=== PATIENT | male | born 1980 | race American Indian/Alaskan Native ===

== ENCOUNTER 2019-08-02 10:38 | Emergency (ER) | payer BC ==
--- NOTE | 2019-08-02 11:26 | Emergency Department Report ---
Blank Doc - Documentation Documentation: 39-year-old male that presents with mid-penile shaft swelling after hitting the toilet while being erected. This initial assessment/diagnostic orders/clinical plan/treatment(s) is/are subject to change based on patient's health status, clinical progression and re- assessment by fellow clinical providers in the ED. Further treatment and workup at subsequent clinical providers discretion. Patient/guardians urged not to elope from the ED as their condition may be serious if not clinically assessed and managed. Initial orders include: 1- Patient sent to [facility] for further evaluation and treatment
--- NOTE | 2019-08-02 13:33 | Emergency Department Report ---
ED Male HPI - General Chief complaint: Urogenital-Male Stated complaint: PENILE EDEMA Time Seen by Provider: 08/02/19 11:25 Source: patient Mode of arrival: Ambulatory Limitations: No Limitations - History of Present Illness Initial comments: This is a 39-year-old male who presents to ED complaining of some penile swelling and tenderness that began this morning he was going to use the bathroom and accidentally tripped and injury to his penis. She denies any pain no urethral blood. Patient was able to urinate after incident without any problems. Patient describes some swelling to the patient shaft as well as some pain with palpation of the proximal shaft. He denies any testicular swelling pain or injuries. Patient describes injury as a twisting injury while penis was errected - Related Data Allergies Allergy/AdvReac Type Severity Reaction Status Date / Time No Known Allergies Allergy Unverified 08/02/19 10:53 ED Review of Systems ROS: Stated complaint: PENILE EDEMA Other details as noted in HPI Comment: All other systems reviewed and negative ED Past Medical Hx - Past Medical History Previous Medical History?: No - Surgical History Past Surgical History?: No ED Physical Exam - General Limitations: No Limitations General appearance: alert, in no apparent distress - Head Head exam: Present: atraumatic, normocephalic - Eye Eye exam: Present: normal appearance - ENT ENT exam: Present: mucous membranes moist - Neck Neck exam: Present: normal inspection - Respiratory Respiratory exam: Present: normal lung sounds bilaterally. Absent: respiratory distress - Cardiovascular Cardiovascular Exam: Present: regular rate, normal rhythm. Absent: systolic murmur, diastolic murmur, rubs, gallop - GI/Abdominal GI/Abdominal exam: Present: soft, normal bowel sounds - Rectal Rectal exam: Present: deferred - exam: Absent: testicular tenderness, scrotal swelling, circumcision External exam: Present: swelling, other (no tenderness to palpation of the penis shaft, some swelling noted to the upper half distal portion of the penis. No redness no bleeding noted.) - Extremities Exam Extremities exam: Present: normal inspection - Back Exam Back exam: Present: normal inspection - Neurological Exam Neurological exam: Present: alert, oriented X3 - Psychiatric Psychiatric exam: Present: normal affect, normal mood - Skin Skin exam: Present: warm, dry, intact, normal color. Absent: rash ED Course Vital Signs 08/02/19 08/02/19 10:53 14:52 Temperature 98.5 F 98.6 F Pulse Rate 68 65 Respiratory 16 18 Rate Blood Pressure 119/76 Blood Pressure 132/74 [Right] O2 Sat by Pulse 99 98 Oximetry - Reevaluation(s) Reevaluation #1: 08/02/19 15:18 Patient is resting comfortably in ED bed. He is in no acute distress. Awaiting transport from [facility] - Consultations Consultation #1: Discussed case with Sumanth Reyes, neurologist at [facility]. He suggested an ED - ED transfer for patient to be evaluated in the ED at the [facility] 08/02/19 15:16 ED Medical Decision Making - Medical Decision Making 39-year-old male presents with penile injury. medical delivery technician was unable to perform ultrasound and the radiologist unable to read of penile ultrasound. Patient inquired with the urologist is. I discussed the patient there is no urologist conservation educator as we do not have urology services. [facility] was paged at this time. Awaiting callback from [facility]. Past with patient that he will need to be transferred to [place] for urology services. Critical care attestation.: If time is entered above; I have spent that time in minutes in the direct care of this critically ill patient, excluding procedure time. ED Disposition Clinical Impression: Penis injury Disposition: [id number] ANOTHER TYPE HLTHCARE Is pt being admited?: No Does the pt Need Aspirin: No Condition: Stable Time of Disposition: 15:18
[2019-08-02 14:53] VITALS: BP 132/74
== END 2019-08-02 16:39 | disposition other institution (70) ==
LOC: ED 10:38
DX: S39.94XA Unspecified injury of external genitals, initial encounter (principal); X58.XXXA Exposure to other specified factors, initial encounter; Y93.89 Activity, other specified; Y92.89 Other specified places as the place of occurrence of the external cause; Y99.8 Other external cause status
CPT/HCPCS: 99284